=== PATIENT | male | born 1960 | race Caucasian/White ===

== ENCOUNTER 2017-04-30 14:41 | Emergency (ER) | payer SELFPAY ==
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
[2017-04-30] MEDS ORDERED: ALPRAZolam 0.5 MG TABLET PO ONE (15:28)
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
== END 2017-04-30 15:20 | disposition home or self-care (01) ==
LOC: ER 14:41
DX: S16.1XXA Strain of muscle, fascia and tendon at neck level, initial encounter (principal); S09.90XA Unspecified injury of head, initial encounter; S60.511A Abrasion of right hand, initial encounter; V48.5XXA Car driver injured in noncollision transport accident in traffic accident, initial encounter; Y92.410 Unspecified street and highway as the place of occurrence of the external cause
CPT/HCPCS: 70450; 72125; 99281; 99283